=== PATIENT | female | born 1995 | race Caucasian/White ===

== ENCOUNTER 2019-05-05 16:54 | Emergency (ER) | payer SELFPAY ==
[2019-05-05 16:54] VITALS: BP 155/102; PULSE 90; RESP 16; TEMP 36.8; O2SAT 97; BMI 54.0
--- NOTE | 2019-05-05 17:30 | RAD_ITS ---
STUDY: X-RAY CHEST REASON FOR EXAM: Female, 23 years old. Congestion TECHNIQUE: Frontal view of the chest COMPARISON: None. FINDINGS: There is a small right lower lung zone infiltrate. The left lung is clear. There are no pleural effusions. There is no pneumothorax. The heart is normal in size. The visualized osseous structures are within normal limits. RAD/Chest 1 View IMPRESSION: Small right lower lung zone infiltrate. Electronically Signed: Jovan Wylie, at 18:04 EST Tel , Service support ,
--- NOTE | 2019-05-05 17:36 | ED.DCSUM_ITS ---
- ER Visit Summary Date of Service: 05/05/19 Chief Complaint: Cough, congestion History of Present Illness: The patient is a 23 F presenting with cough, congestion. She states this started in January. She was seen in the ER at [place] 2 weeks ago and was given an albuterol inhaler. She does not currently have a primary care physician. She denies fever or chills. She has had a nonproductive cough. She complains of sore throat. No difficulty swallowing. No other complaints. Physical Examination: Vitals are stable. Patient is afebrile. Alert no acute distress. HEENT exam pharyngeal erythema with no exudate. Uvula midline. Neck is supple. Lungs are clear and equal bilaterally. Heart is regular rate and rhythm. Abdomen is soft nontender nondistended. Extremities are unremarkable. Skin is warm and dry. No focal neurologic deficit. Remainder of exam is unremarkable. Emergency Department Course and Treatment: Chest xray shows small right lower lung zone infiltrate. Rapid strep is positive. Patient was given Bicillin IM. She was given doxycycline. She is given Dr. Garcia continuous improvement facilitator for no doctor for follow-up. Advised to return to ED for worsening complaints. Disposition: Discharge home Impression: Pharyngitis, community-acquired pneumonia This note was generated with [employer] dictation software. It may contain incorrect words, spelling, and punctuation that were not noted in review of the chart prior to signing ED Disposition - Plan for ED Patient: Instructions: PHARYNGITIS, Strep (Confirmed), PNEUMONIA (Adult) Prescriptions: Doxycycline 100 mg PO BID #20 cap Prescription Printed Referrals: Colin Garcia MD [STAFF PHYSICIAN] -
--- NOTE | 2019-05-05 18:19 | ED.RN ---
lab with critical of positive strep. rn to inform dr sargent at this time.
--- NOTE | 2019-05-05 19:14 | ED.DEP ---
ED Disposition - Plan for ED Patient: Instructions: PNEUMONIA (Adult), PHARYNGITIS, Strep (Confirmed) Prescriptions: Doxycycline 100 mg PO BID #20 capsule Referrals: Colin Garcia MD [STAFF PHYSICIAN] -
[2019-05-05] MEDS: Doxycycline 100 MG CAPSULE PO (19:24)
[2019-05-05] MEDS: Penicillin G Benzathine 1.2 MU/2 ML Syringe IM (19:24)
== END 2019-05-05 19:44 | disposition home or self-care (01) ==
LOC: ED 17:51
PROVIDERS: Emergency Provider Emergency Medicine
DX: J18.9 Pneumonia, unspecified organism (principal); J02.0 Streptococcal pharyngitis; Z72.0 Tobacco use
CPT/HCPCS: 71045; 87880; 96372; 99283